=== PATIENT | male | born 1960 | race Caucasian/White ===

== ENCOUNTER → 2020-07-16 | Outpatient (CLI) | payer OTHER ==
[~2020-07-16] MED LIST: AMLODIPINE BESY10 MG PO; AMLODIPINE BESYL5 MG PO; ASPIRIN EC325 MG PO; COZAAR100 MG PO; DAILY-VITE1 EACH PO; DRISDOL1250 MCG PO; ELIQUIS 2.5 MG2.5 MG PO; FERROUS GLUCON324 M1 PO; IBU600 MG PO; IBUPROFEN600 MG PO; LOPRESSOR 25 MG25 MG PO; LOSARTAN-HCTZ1 EAC2 PO; NORVASC10 MG PO; OXYCODON-ACETA1 EAC1 PO; VITAMIN B-1100 M1 PO; VITAMIN D3; VITAMIN D31250 MCG PO
== END ==
LOC: EXRD 09:29
DX: M25.552 Pain in left hip (principal); M16.12 Unilateral primary osteoarthritis, left hip; Z96.642 Presence of left artificial hip joint
CPT/HCPCS: 73502

== ENCOUNTER 2020-08-18 13:08 | Inpatient (IN) | payer OTHER ==
[~2020-08-18] VITALS: Ht 190.5 cm; Wt 116.6 kg
[~2020-08-18 13:08] MED LIST changes: -AMLODIPINE BESY10 MG PO; -ASPIRIN EC325 MG PO; -COZAAR100 MG PO; -DAILY-VITE1 EACH PO; -DRISDOL1250 MCG PO; -FERROUS GLUCON324 M1 PO; -IBUPROFEN600 MG PO; -NORVASC10 MG PO; -OXYCODON-ACETA1 EAC1 PO; -VITAMIN B-1100 M1 PO; -VITAMIN D3; -VITAMIN D31250 MCG PO
[2020-08-18] MEDS ORDERED: NORVASC10 MG PO (14:08)
[2020-08-18] MEDS ORDERED: IBU600 MG PO (14:09)
[2020-08-18] MEDS ORDERED: DRISDOL1250 MCG PO (14:39)
[2020-08-18] MEDS ORDERED: DAILY-VITE1 EACH PO (14:39)
[2020-08-18 16:58] LABS: BUN/CREATININE RATIO 15 (0-10)
[2020-08-18 21:03] LABS: BUN/CREATININE RATIO 20 (0-10)
[2020-08-19 03:00] LABS: BUN/CREATININE RATIO 20 (0-10)
[2020-08-19 08:38] LABS: HEMOGLOBIN 15.9 gm/dl (14.0-17.5); RED BLOOD COUNT 4.56 M/UL (4.20-5.50)
[2020-08-19 09:00] LABS: WHITE BLOOD COUNT 5.8 K/UL (4.5-11.0)
[2020-08-19 09:07] LABS: BUN/CREATININE RATIO 17 (0-10)
[2020-08-19 14:54] LABS: BUN/CREATININE RATIO 21 (0-10)
[2020-08-20 03:17] LABS: BUN/CREATININE RATIO 27 (0-10)
[2020-08-20 16:58] LABS: BUN/CREATININE RATIO 28 (0-10)
[2020-08-21 04:40] LABS: BUN/CREATININE RATIO 27 (0-10)
[2020-08-21] MEDS ORDERED: COZAAR100 MG PO (08:18)
--- NOTE | 2020-08-21 11:35 | NUR ---
INSTRUCTED PATIENT MEDS AT PHARMACY. DO NOT TAKE ANY NSAIDS RELATED TO KIDNEY DISEASE AND MD INSTRUCTION. KEEP FOLLOW UP APPOINTMENTS. STAY ON FLUID RESTRICTIONS. VERBALIZED UNDERSTANDING. BRENDA LEVI R.N.
[2020-10-03] MEDS ORDERED: VITAMIN D3 (08:46)
[2020-10-11] MEDS ORDERED: VITAMIN D31250 MCG PO (13:34)
== END 2020-08-21 12:15 | disposition home or self-care (01) | DRG 641 ==
LOC: ER1 13:08 → CDU 14:00 → M/S 14:00
PROVIDERS: Internal Medicine; Physician Assistant; ADMIT Internal Medicine
DX: E87.1 Hypo-osmolality and hyponatremia (principal); D69.6 Thrombocytopenia, unspecified; I10 Essential (primary) hypertension; Z72.89 Other problems related to lifestyle; R63.1 Polydipsia; Z96.641 Presence of right artificial hip joint; E86.0 Dehydration; T50.2X5A Adverse effect of carbonic-anhydrase inhibitors, benzothiadiazides and other diuretics, initial encounter; Z20.822 Contact with and (suspected) exposure to COVID-19
CPT/HCPCS: 36415; 71046; 80048; 80053; 81001; 82436; 83735; 84133; 84300; 85025; 87081; 93005; 99283; G0480; U0002

== ENCOUNTER → 2020-08-28 | Outpatient (CLI) | payer OTHER ==
[~2020-08-28] MED LIST changes: +AMLODIPINE BESY10 MG PO; +ASPIRIN EC325 MG PO; +COZAAR100 MG PO; +DAILY-VITE1 EACH PO; +DRISDOL1250 MCG PO; +FERROUS GLUCON324 M1 PO; +IBUPROFEN600 MG PO; +NORVASC10 MG PO; +OXYCODON-ACETA1 EAC1 PO; +VITAMIN B-1100 M1 PO; +VITAMIN D3; +VITAMIN D31250 MCG PO
[2020-08-28 12:36] LABS: BUN/CREATININE RATIO 12 (0-10)
== END ==
LOC: LAB 11:25
PROVIDERS: Internal Medicine
DX: E87.1 Hypo-osmolality and hyponatremia (principal)
CPT/HCPCS: 36415; 80048

== ENCOUNTER → 2020-10-03 | Outpatient (CLI) | payer OTHER ==
[2020-10-03 09:22] LABS: HEMOGLOBIN 14.1 gm/dl (14.0-17.5); RED BLOOD COUNT 3.98 M/UL (4.20-5.50)
[2020-10-03 09:40] LABS: BUN/CREATININE RATIO 10 (0-10)
== END ==
LOC: OPSV2 07:59 → EDSTATUS 08:00 → OPSV2 08:00
PROVIDERS: Orthopaedic Surgery
DX: Z01.812 Encounter for preprocedural laboratory examination (principal); Z01.818 Encounter for other preprocedural examination; Z01.810 Encounter for preprocedural cardiovascular examination; M87.9 Osteonecrosis, unspecified; R00.0 Tachycardia, unspecified
CPT/HCPCS: 71046; 80048; 81001; 85025; 93005

== ENCOUNTER 2020-10-16 06:28 | Inpatient (IN) | payer OTHER ==
[~2020-10-16] VITALS: Ht 190.5 cm; Wt 117.0 kg
[~2020-10-16 06:28] MED LIST changes: -AMLODIPINE BESY10 MG PO; -ASPIRIN EC325 MG PO; -FERROUS GLUCON324 M1 PO; -IBUPROFEN600 MG PO; -OXYCODON-ACETA1 EAC1 PO; -VITAMIN B-1100 M1 PO
[2020-10-16 07:42] LABS: BUN/CREATININE RATIO 14 (0-10)
[2020-10-16 07:56] LABS: HEMOGLOBIN 13.9 gm/dl (14.0-17.5); RED BLOOD COUNT 3.9 M/UL (4.20-5.50); WHITE BLOOD COUNT 5.6 K/UL (4.5-11.0)
[2020-10-16] MEDS ORDERED: OXYCODON-ACETA1 EAC1 PO (09:20)
[2020-10-16] MEDS ORDERED: ASPIRIN EC325 MG PO (09:20)
[2020-10-16] MEDS ORDERED: IBUPROFEN600 MG PO (13:39)
[2020-10-16] MEDS ORDERED: AMLODIPINE BESY10 MG PO (13:40)
--- NOTE | 2020-10-16 19:16 | NUR ---
PT HAD BLEEDING ON HIS SURGERY SITE, CALLED DR. ALEXANDRA AND WAS TOLD TO ADD 4X WITH PAPER TAPE.
[2020-10-17 03:16] LABS: HEMOGLOBIN 9.6 gm/dl (14.0-17.5); WHITE BLOOD COUNT 4.9 K/UL (4.5-11.0)
[2020-10-17 03:18] LABS: RED BLOOD COUNT 2.76 M/UL (4.20-5.50)
[2020-10-17 03:34] LABS: BUN/CREATININE RATIO 13 (0-10)
[2020-10-17] MEDS ORDERED: VITAMIN B-1100 M1 PO (14:48)
[2020-10-17] MEDS ORDERED: LOPRESSOR 25 MG25 MG PO (14:48)
[2020-10-18 06:13] LABS: HEMOGLOBIN 7.9 gm/dl (14.0-17.5); WHITE BLOOD COUNT 4.3 K/UL (4.5-11.0)
[2020-10-18 06:17] LABS: RED BLOOD COUNT 2.25 M/UL (4.20-5.50)
[2020-10-18 06:36] LABS: BUN/CREATININE RATIO 18 (0-10)
[2020-10-19 06:56] LABS: HEMOGLOBIN 7.7 gm/dl (14.0-17.5); RED BLOOD COUNT 2.2 M/UL (4.20-5.50); WHITE BLOOD COUNT 4.8 K/UL (4.5-11.0)
[2020-10-19 07:25] LABS: BUN/CREATININE RATIO 12 (0-10)
[2020-10-20 03:31] LABS: HEMOGLOBIN 7.3 gm/dl (14.0-17.5); RED BLOOD COUNT 2.1 M/UL (4.20-5.50); WHITE BLOOD COUNT 4.7 K/UL (4.5-11.0)
[2020-10-20] MEDS ORDERED: FERROUS GLUCON324 M1 PO (10:17)
== END 2020-10-20 14:09 | disposition home or self-care (01) | DRG 470 ==
LOC: OR 06:28 → M/S 06:28 → EDSTATUS 10:00 → OR 12:15 → M/S 12:15 → OR 10-17 11:19 → M/S 10-17 11:19 → OR 10-19 12:07 → M/S 10-19 12:07
PROVIDERS: Internal Medicine; ADMIT Orthopaedic Surgery
PROC: 0SRB03Z Replacement of Left Hip Joint with Ceramic Synthetic Substitute, Open Approach (ICD-10-PCS; principal; 2020-10-16 09:30)
PROC: HZ2ZZZZ Detoxification Services for Substance Abuse Treatment (ICD-10-PCS; 2020-10-19)
DX: M87.852 Other osteonecrosis, left femur (principal); D62 Acute posthemorrhagic anemia; E87.1 Hypo-osmolality and hyponatremia; F10.139 Alcohol abuse with withdrawal, unspecified; Z96.641 Presence of right artificial hip joint; M19.90 Unspecified osteoarthritis, unspecified site; F41.9 Anxiety disorder, unspecified; I10 Essential (primary) hypertension; T50.2X5A Adverse effect of carbonic-anhydrase inhibitors, benzothiadiazides and other diuretics, initial encounter; Y90.9 Presence of alcohol in blood, level not specified; Z79.82 Long term (current) use of aspirin; Z88.8 Allergy status to other drugs, medicaments and biological substances; Z87.01 Personal history of pneumonia (recurrent)
CPT/HCPCS: 36415; 73501; 73502; 76000; 80048; 80053; 83735; 84100; 85018; 85027; 86850; 86900; 86901; 96374; 97110-GP-CQ; 97116-GP-CQ; 97161; 97166; 97535; C1776; G0378; J0690; J1100; J1885; J2001; J2250; J2370; J2405; J2704; J2795; J3010; J3370; J7050; J7120; Q9967

== ENCOUNTER → 2020-11-20 | Outpatient (CLI) | payer OTHER ==
[~2020-11-20] MED LIST changes: +AMLODIPINE BESY10 MG PO; +ASPIRIN EC325 MG PO; +FERROUS GLUCON324 M1 PO; +IBUPROFEN600 MG PO; +OXYCODON-ACETA1 EAC1 PO; +VITAMIN B-1100 M1 PO
== END ==
LOC: HEART 5 14:16
DX: R00.0 Tachycardia, unspecified (principal); I27.20 Pulmonary hypertension, unspecified; I51.9 Heart disease, unspecified; I51.7 Cardiomegaly
CPT/HCPCS: 93306

== ENCOUNTER 2020-12-10 16:01 | Emergency (ER) | payer OTHER | END 2020-12-10 16:10 | disposition home or self-care (01) | LOC: ER1 16:01 | DX: I46.9 Cardiac arrest, cause unspecified (principal); Z88.0 Allergy status to penicillin | CPT/HCPCS: 99285 ==